=== PATIENT | male | born 1995 | race Caucasian/White ===

== ENCOUNTER 2016-07-22 14:33 | Emergency (ER) | payer MEDICAID, OTHER ==
[~2016-07-22] VITALS: Ht 170.2 cm; Wt 78.5 kg
[~2016-07-22 14:33] MED LIST: SULF1TAB12 PO
[2016-07-22 14:49] VITALS: BP 122/76
--- NOTE | 2016-07-22 14:55 | NUR ---
Patient to bed 08.
--- NOTE | 2016-07-22 14:56 | NUR ---
PT C/O RIGHT FOOT PAIN X 2 WEEKS, PT. STATES HE TWISTED FOOTFRUNNING DOWN A HILL . DENIES N/V/D; SKIN IS PINK/WARM/DRY; AAOX4 WITH EVEN AND STEADY GAIT; LUNGS CLEAR BL; HR EVEN AND REGULAR; PT DENIES ANY FEVER, CP, SOB, OR COUGH AT THIS TIME; PATIENT STATES PAIN OF 7/10 AT THIS TIME; VSS; PATIENT POSITIONED FOR COMFORT; HOB ELEVATED; BEDRAILS UP X2; BED DOWN. ER MD MADE AWARE OF PT STATUS.
--- NOTE | 2016-07-22 16:31 | NUR ---
Dr. [place] evaluating patient at bedside.
[2016-07-22 16:53] VITALS: BP 125/75
== END 2016-07-22 16:51 | disposition home or self-care (01) ==
LOC: MED 14:33
DX: M67.471 Ganglion, right ankle and foot (principal); S93.601A Unspecified sprain of right foot, initial encounter; R03.0 Elevated blood-pressure reading, without diagnosis of hypertension; Y93.02 Activity, running; Y92.828 Other wilderness area as the place of occurrence of the external cause
CPT/HCPCS: 99283

== ENCOUNTER 2021-07-21 21:23 | Emergency (ER) | payer BC ==
[~2021-07-21] VITALS: Ht 170.2 cm; Wt 89.8 kg
[2021-07-21 21:32] VITALS: BP 136/83
--- NOTE | 2021-07-21 21:48 | NUR ---
LWBS AT 0654
== END 2021-07-21 21:48 | disposition left against medical advice (07) ==
LOC: MED 21:23
DX: Z53.21 Procedure and treatment not carried out due to patient leaving prior to being seen by health care provider (principal); J45.909 Unspecified asthma, uncomplicated; Z88.6 Allergy status to analgesic agent; W54.0XXA Bitten by dog, initial encounter; Y93.89 Activity, other specified; Y92.89 Other specified places as the place of occurrence of the external cause; Y99.8 Other external cause status